=== PATIENT | female | born 1965 | race Two or more races ===

== ENCOUNTER 2023-02-20 11:07 | Emergency (ER) | payer OTHER ==
[~2023-02-20] VITALS: Ht 165.1 cm; Wt 64.0 kg
[2023-02-20] MEDS ORDERED: ENDOMETRIN100 MG VAG (11:27)
[2023-02-20] MEDS ORDERED: MULTI VITAMIN1 EACH PO (11:27)
== END 2023-02-20 15:56 | disposition home or self-care (01) ==
LOC: ER 11:07
DX: R07.89 Other chest pain (principal); R06.02 Shortness of breath; Z56.6 Other physical and mental strain related to work